=== PATIENT | male | born 1975 | race Caucasian/White ===

== ENCOUNTER 2025-03-11 13:20 | Emergency (ER) | payer MEDICAID, SELFPAY ==
--- NOTE | 2025-03-11 13:24 | ED_ITS ---
<Statement entered by Jose Flood MD - 03/11/25 16:38> I was consulted by the HUBERT, and we discussed the complexity of problems being addressed. I approved the treatment and management plan for this patient's care in the emergency department, thus performing a substantial portion of the medical decision making. Jose Flood MD Discharge Plan Disposition Patient Disposition: Home, Self-Care Condition: Good Prescriptions Prescriptions: New methocarbamol 750 mg tablet 750 mg PO Q6H PRN (Reason: muscle spasm) Qty: 20 0RF lidocaine 5 % adhesive patch,medicated 1 patch topical DAILY Qty: 30 0RF Rx Instructions: leave on most painful area for up to 12 hrs Referrals Follow up/Referrals: Alexander José DO [Staff Physician, Orthopedics] - See instructions Provider,Referral, [Primary Care Provider, Medical] - See instructions Activity Restrictions/Add. Instructions Additional Instructions/Restrictions: I have referred you to Dr. José of orthopedic surgery. Please call to make your appointment. If you have any persistent new or worsening signs or symptoms follow-up with your PCP return to the ER as needed. I recommend weightbearing as tolerated. I have sent in a muscle relaxer and Lidoderm patch to your pharmacy if you found them helpful please fill them. I definitely recommend rest ice compression elevation along with 1000 mg of Tylenol alternating every 4 hours with 800 mg of Motrin for the next 24 hours or so to reduce pain and swelling. Clinical Impressions Clinical Impression: Injury of knee, right Print Language Print Language: Maltese Discharge ED Provider: Jose Flood General Adult HPI General Chief complaint: Extremity Injury, Lower Stated complaint: right knee pain Time Seen by Provider: 03/11/25 13:24 History of Present Illness HPI narrative: Patient presents for evaluation of right knee injury. Patient has a senait gstanding history of previous knee fracture status post ORIF of the tibia. Patient was cutting down a tree and climbed over a fence and when he stepped down with his right leg planted his knee shifted . He has had pain ever since. He is able to bear weight however has been using a crutch. He has taken no [id number]-mud-[id number] medications to treat it. He denies any numbness tingling loss of motor or sensory. Related Data Previous Rx's ?Medication ?Instructions ?Recorded lidocaine 5 % topical patch 1 patch topical DAILY #30 ea 03/11/25 methocarbamol 750 mg tablet 750 mg PO Q6H PRN muscle s pasm #20 03/11/25 tabs Allergies Allergy/AdvReac Type Severity Reaction Status Date / Time No Known Allergies Allergy Verified 03/11/25 13:32 [facility] Disclaimer: The information contained in this section may have been updated after the patient was seen, as this information can be updated by other users. Social History Smoking Status: Current every day smoker alcohol intake: never current occupational status: unemployed Travel in the last 8 weeks?: None ROS Obtained: Yes Systems reviewed as appropriate & no additional complaints except as documented Physical Exam General General appearance: alert and in no apparent distress Respiratory Respiratory exam: Present normal lung sounds bilaterally Cardiovascular Cardiovascular exam: Present regular rate Neurological Exam Neurological exam: Present alert and oriented X3 Psychiatric Psychiatric exam: Present normal affect Medical Decision Making Medical Records Medical records reviewed: Yes I reviewed the patient's medical records. Screening: Per USPSTF and CDC recommendations, given the prevalence of disease in our region, it is our hospital?s policy to screen for HIV and viral Hepatitis for all patients aged 18 and over and those with ongoing risk factors. Ridge Inquiry Pt receiving controlled substance: No Vital Signs: 03/11/25 13:27 Temperature 97.9 F Temperature Source Oral Pulse Rate [Left Brachial] 86 Respiratory Rate 17 Blood Pressure [Left Arm] 148/81 H Blood Pressure Mean [Left Arm] 103 Blood Pressure Source [Left Arm] Automatic Cuff Blood Pressure Position [Left Arm] Sitting 02 Sat by Pulse Oximetry 99 Oxygen Delivery Method Room Air Orders (Tests/Meds): ED MEDICATIONS Generic Name Dose Route Start Last Admin Trade Name Freq PRN Reason Stop Dose Admin Dexamethasone Sodium Phosphate 10 mg 03/11/25 14:15 Dexamethasone 4mg/Ml 5ml Mdv IM 04/10/25 14:14 Q6H NGOC Discontinued Medications Generic Name Dose Route Start Last Admin Trade Name Freq PRN Reason Stop Dose Admin Ketorolac Tromethamine 10 mg 03/11/25 14:01 Ketorolac 10mg Tablet PO 03/11/25 14:02 ONCE ONE Lidocaine 1 each 03/11/25 14:01 Lidocaine 5% Transdermal Patch TD 03/11/25 14:02 ONCE ONE ORDERS Category Date Time Status Knee XR right 3 views [XR knee RT 3V] Stat Exams 03/11/25 13:29 Completed Medical Decision Narrative: In summary patient is a 49-year-old male who presents to the emergency department for evaluation of right knee injury. Patient is hemodynamically stable upon arrival, afebrile. Physical exam is remarkable for right knee pain with range of motion testing however there is no loss of motor or sensory and is neurovascular intact distally. There is no evidence of edema erythema or obvious swelling. Is no palpable bony deformity.. Differential diagnosis includes hardware failure versus acute fracture versus soft tissue injury etc. Initial workup will be conducted with film x-rays. Initial interventions include Decadron and Lidoderm. Initial workup reviewed by me shows no acute bony fracture but does show slight joint effusion. Please see final read formal interpretation given this patient is appropriate for discharge with recommended weightbearing as tolerated Tylenol alternating with ibuprofen a prescription for meloxicam and Lidoderm and referral to orthopedics. Critical Care Critical Care Time Critical Care Time: No
[2025-03-11 13:27] VITALS: BP 148/81; PULSE 86; RESP 17; TEMP 36.6; O2SAT 99; BMI 21.6
--- NOTE | 2025-03-11 13:29 | XR_ITS ---
FINAL REPORT CLINICAL HISTORY: Twisted knee Friday COMPARISON: None FINDINGS: Three views of the right knee were obtained. There are post ORIF changes of the proximal tibia. Chronic posttraumatic deformity of the medial tibial plateau is noted. There is no acute fracture or dislocation. Moderate degenerative changes are likely posttraumatic. There is a small joint effusion. There is no acute soft tissue abnormality. IMPRESSION: Chronic posttraumatic changes without definite acute fracture. Joint effusion. Reviewed, Interpreted and Dictated by Layla Joyce MD Transcribed by Jennifer Rockwell Authenticated and [facility]
--- OUTSIDE RECORDS SUMMARY | 2025-03-11 13:42 | XMS_ITS | Clinical Summary ---
Author Organization Healthcare Address [address] [place] [address] Care Team Providers Care Distribution Estimator Name Role Phone Unavailable Primary Care Provider Unavailabl e Social History Tobacco Use Types Packs/Day Years Used Date Smoking Tobacco: Never Assessed Sex and Gender Information Value Date Recorded Sex Assigned at Not on file Legal Sex Male 3:48 PM EDT Gender Identity Not on file Sexual Orientation Not on file Plan of Treatment Health Maintenance Due Date Last Done Comments [facility]-Depression Screening 1973 [facility]-Infant/Child/Adol SDOH Screenings 1973 [facility]- SDOH Screenings 1991 [facility]-Adult SDOH Screenings 1991 [facility]-DTaP,Tdap,and Td Vaccine s (1 - Tdap) 1992 [facility]-Hepatitis B Vaccines (1 of 3 - 19+ 3-dose series) 1992 CT Colonography 2018 Colonoscopy 2018 FIT-DNA 2018 FIT 2018 FOBT 2018 Sigmoidoscopy 2018 [facility]-Colorectal Cancer Screening 2018 [facility]-Pneumococcal Vaccine: 50 + Years (1 of 1 - PCV) 2023 [facility]-Zoster Vaccines (1 of 2) 2023 [id number]-[id number]-01 Vaccine (1 - 20 24-25 season) 2024 [facility]-Influenza Vaccine (#1) 2025 HPV Vaccines Aged Out No longer eligi ble based on patient's age to complete this topic [facility]-HIB Vaccines Aged Out No longer e ligible based on patient's age to complete this topic [facility]-Hepatitis A Vaccines Aged Out No longer eligible based on patient's age to complete this topic [facility]-IPV Vaccines Aged Out No longer e ligible based on patient's age to complete this topic [facility]-Rotavirus Vaccines Aged Out No lo nger eligible based on patient's age to complete this topic Insurance [employer] [place]
[2025-03-11 14:31] VITALS: BP 140/82; PULSE 80; RESP 20; TEMP 37; O2SAT 97
[2025-03-11] MEDS: DEXAMETHASONE 4MG/ML 5ML MDV 10 MG IM (14:31)
[2025-03-11] MEDS: KETOROLAC 10MG TABLET 10 MG PO (14:32)
[2025-03-11] MEDS: LIDOCAINE 5% TRANSDERMAL PATCH 1 EACH TD (14:32)
== END 2025-03-11 14:52 | disposition home or self-care (01) ==
PROVIDERS: Emergency Provider Emergency Medicine
DX: S89.91XA Unspecified injury of right lower leg, initial encounter (principal); M25.561 Pain in right knee; X50.1XXA Overexertion from prolonged static or awkward postures, initial encounter
CPT/HCPCS: 73562; 96372; 99283; J1100

== ENCOUNTER → 2025-03-24 11:27 | Outpatient (RCR) | payer MEDICAID, SELFPAY | LOC: PT 11:27 | PROVIDERS: Visit Provider Physician Assistant | DX: M17.11 Unilateral primary osteoarthritis, right knee (principal) | CPT/HCPCS: 97760 ==